=== PATIENT | female | born 1965 | race Caucasian/White ===

== ENCOUNTER 2020-06-13 10:26 | Emergency (ER) | payer MEDICAID, SELFPAY ==
[2020-06-13 11:04] VITALS: BP 82/52; PULSE 84; RESP 17; TEMP 36.3; O2SAT 96; BMI 24.2
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
[2020-06-13 12:00] VITALS: BP 90/62
== END 2020-06-13 12:36 | disposition home or self-care (01) ==
PROVIDERS: Emergency Provider Emergency Medicine; PCP Internal Medicine
DX: S42.201A Unspecified fracture of upper end of right humerus, initial encounter for closed fracture (principal); M25.511 Pain in right shoulder; Y29.XXXA Contact with blunt object, undetermined intent, initial encounter; Y93.9 Activity, unspecified; Y92.9 Unspecified place or not applicable; Y99.9 Unspecified external cause status; Z79.899 Other long term (current) drug therapy; Z21 Asymptomatic human immunodeficiency virus [HIV] infection status
CPT/HCPCS: 73030; 99283

== ENCOUNTER 2020-06-27 12:29 | Outpatient (REF) | payer MEDICAID, SELFPAY ==
--- NOTE | 2020-06-27 12:49 | XR_ITS ---
EXAMINATION: XR SHOULDER, RIGHT CLINICAL INFORMATION: Fracture proximal right humerus. Follow-up. COMPARISON: Radiographs right shoulder 06/13/2020 TECHNIQUE: 2 views right shoulder are obtained. FINDINGS: Comminuted proximal humeral fracture is again noted with involvement humeral neck and base greater tuberosity. Alignment appears stable. There is no dislocation or destructive process. Fracture lines are still visible. No interval callus formation appreciated. The acromioclavicular alignment is normal. XR/XR shoulder RT min 2V IMPRESSION: Stable alignment comminuted fracture proximal humeral fracture.
== END 2020-06-27 12:30 | disposition home or self-care (01) ==
LOC: HO.HOSX 12:29
PROVIDERS: Visit Provider Physician Assistant
DX: S42.209A Unspecified fracture of upper end of unspecified humerus, initial encounter for closed fracture (principal)
CPT/HCPCS: 73030; 99202

== ENCOUNTER 2020-07-26 08:35 | Outpatient (REF) | payer MEDICAID, SELFPAY | END 2020-07-26 08:36 | disposition home or self-care (01) | LOC: HO.HOSX 08:35 | PROVIDERS: Visit Provider Physician Assistant | DX: Z13.89 Encounter for screening for other disorder (principal) ==

== ENCOUNTER 2020-08-10 12:13 | Outpatient (REF) | payer MEDICAID, SELFPAY | END 2020-08-10 12:14 | disposition home or self-care (01) | LOC: HO.HOSX 12:13 | PROVIDERS: Visit Provider Physician Assistant | DX: Z13.89 Encounter for screening for other disorder (principal) ==

== ENCOUNTER 2021-02-20 11:47 | Emergency (ER) | payer MEDICAID, SELFPAY ==
[2021-02-20 12:02] VITALS: BP 122/68; PULSE 82; RESP 18; TEMP 36.8; O2SAT 97; BMI 25.0
== END 2021-02-20 14:02 | disposition left against medical advice (07) ==
PROVIDERS: Emergency Provider Emergency Medicine; PCP Student in an Organized Health Care Education/Training Program
DX: R10.2 Pelvic and perineal pain (principal)
CPT/HCPCS: 99281; 99282

== ENCOUNTER 2024-02-21 01:26 | Emergency (ER) | payer MEDICAID, SELFPAY ==
[2024-02-21 03:05] VITALS: BP 141/82; PULSE 76; RESP 16; TEMP 36.6; O2SAT 97; BMI 27.6
--- NOTE | 2024-02-21 03:32 | ED_ITS ---
HPI - Dental/Oral General Chief complaint: Dental/Oral Stated complaint: antibiotics needed? Called ED earlier Time Seen by Provider: 02/21/24 03:32 Source: patient Mode of arrival: ambulatory Limitations: no limitations History of Present Illness ED Provider: anel MAYER Narrative: Patient with broken right upper incisor for last few days plan to have full extraction complaining of pain no fever no chills no facial swelling Related Data Home Medications ?Medication ?Instructions ?Recorded ?Confirmed bictegravir 50 mg-emtricitabine 1 tab PO DAILY 06/27/20 200 mg-tenofovir alafenam 25 mg tablet (Biktarvy) methadone 10 mg tablet 5 mg PO DAILY 06/27/20 Previous Rx's ?Medication ?Instructions ?Recorded acetaminophen 500 mg tablet 500 mg PO Q6H PRN pain or fever 06/13/20 (Tylenol Extra Strength) #20 tabs naproxen 500 mg tablet 500 mg PO BID PRN pain 30 days #60 06/27/20 tabs clindamycin HCl 300 mg capsule 300 mg PO TID #30 caps 02/21/24 oxycodone 5 mg tablet 5 mg PO Q6H PRN pain #20 tabs 02/21/24 Allergies Allergy/AdvReac Type Severity Reaction Status Date / Time Penicillins [PENICILLINS] Allergy Mild HIVES Verified 02/21/24 03:06 Review of Systems 2 Review of Systems: Yes all other systems are reviewed and are negative [facility] Past Medical History Medical History Hepatitis C HIV (human immunodeficiency virus infection) Social History Social History Alcohol intake: never Cigarettes Per Day: 5 Smoked in Last 30 Days: Yes Use of substances other than those prescribed or required for medical reasons: No Advance Directives: No Advance Directives Information Provided: Yes Do you have a plan to hurt others: No Plan Patient : No Current occupational status: disabled Current occupation: rt handed Physical Exam 2 Vital Signs: Vital Signs: Last Vital Signs Temp 97.9 F 02/21/24 03:05 Pulse 76 02/21/24 03:05 Resp 16 02/21/24 03:05 BP 141/82 H 02/21/24 03:05 Pulse Ox 97 02/21/24 03:05 O2 Del Method Room Air 02/21/24 03:05 BMI result Body Mass Index 27.6 HEENT: Teeth image: 1. Edentulous with gum swelling no fluctuance swelling no pus discharge Medications Administered Discontinued Medications Generic Name Dose Route Start Last Admin Trade Name Freq PRN Reason Stop Dose Admin Oxycodone HCl 10 mg 02/21/24 03:36 02/21/24 03:59 Oxycodone Hcl Immed Release 5 Mg Tablet PO 02/21/24 03:37 10 mg ONCE ONE Administration Medical Decision Making Medical Decision Making MDM Narrative: Patient with tooth 7. Pulpitis will prescribe Augmentin advised to follow-up with dentist Discharge Plan Discharge Clinical Impression: Dental caries Patient Disposition: Home, Self-Care Instructions: Dental Abscess (ED) Additional Instructions: avoid cold water take antibiocts as adv follow up with tour dentist Prescriptions: New clindamycin HCl 300 mg capsule 300 mg PO TID Qty: 30 0RF oxycodone 5 mg tablet 5 mg PO Q6H PRN (Reason: pain) Qty: 20 0RF Rx Instructions: Partial Fill upon patient request. No Action acetaminophen [Tylenol Extra Strength] 500 mg tablet 500 mg PO Q6H PRN (Reason: pain or fever) Qty: 20 0RF naproxen 500 mg tablet 500 mg PO BID PRN (Reason: pain) 30 Days Qty: 60 3RF Print Language: Faroese
[2024-02-21] MEDS: oxyCODONE HCl Immed Release 5 MG TABLET 10 MG PO (03:59)
== END 2024-02-21 04:00 | disposition home or self-care (01) ==
PROVIDERS: Emergency Provider Internal Medicine
DX: K02.9 Dental caries, unspecified (principal); K08.89 Other specified disorders of teeth and supporting structures; B20 Human immunodeficiency virus [HIV] disease; B19.20 Unspecified viral hepatitis C without hepatic coma; F11.20 Opioid dependence, uncomplicated
CPT/HCPCS: 99283; 99284